=== PATIENT | male | born 1930 | race Asian ===

== ENCOUNTER 2019-04-08 17:11 | Emergency (ER) | payer MEDICARE ==
[~2019-04-08] VITALS: Ht 165.1 cm; Wt 74.8 kg
--- NOTE | 2019-04-08 17:15 | NUR ---
ED Nurse Note: PT BROUGHT IN TO ER TODAY FROM HOME BY RA29. AOX4. DAUGHTER AT BEDSIDE. PER PT'S DAUGHTER, PT HAS ABDOMINAL PAIN, NAUSEA, AND ONE EPISODE OF VOMITING AT HOME AROUND 1300. AT BEDSIDE, PT STILL C/O ABDOMINAL PAIN AND HAD ONE EPISODE OF VOMITING. PT CLEANED AND GOWN CHANGED. PT DENIES NAUSEA AFTER VOMITING EPISODE. BP ELEVATED - 167/76 - DR DRAPER AWARE.
[2019-04-08 17:42] VITALS: BP 167/76
--- NOTE | 2019-04-08 17:51 | Emergency Room Report ---
History of Present Illness General Chief Complaint: Nausea Source: Patient, EMS Present Illness HPI Patient is an 88-year-old male who presents after increased epigastric pain and vomiting. He had prior history of ulcers as well as dementia. Patient was brought in by 911. He had previously been on acid blockers. He reportedly had some dark emesis which appeared to look like coffee. He had previous history of bleeding ulcers in the past. He had drinking some soda prior to episode. He denies any diarrhea. He had a fall yesterday.Patient was noted to have some epigastric discomfort. History is limited by patient's mental status. Allergies: Coded Allergies: No Known Allergies (Unverified , 04/08/19) Patient History Past Medical History: see triage record Reviewed Nursing Documentation: PMH: Agreed; PSxH: Agreed Nursing Documentation-PM Past Medical History: No History, Except For Hx Hypertension: Yes History Of Psychiatric Problem: Yes - dementia Review of Systems All Other Systems: negative except mentioned in HPI Physical Exam Vital Signs Date Time Temp Pulse Resp B/P (MAP) Pulse Ox O2 Delivery O2 Flow Rate FiO2 04/08/19 17:07 99.0 69 18 164/78 (106) 97 Room Air Sp02 EP Interpretation: reviewed, normal General Appearance: alert, Chronically Ill Head: atraumatic ENT: normal ENT inspection, hearing grossly normal, normal voice Neck: normal inspection, full range of motion, supple, no bony tend Respiratory: normal inspection, lungs clear, normal breath sounds, no respiratory distress, no retraction, no wheezing Cardiovascular #1: regular rate, rhythm, no edema Gastrointestinal: soft, tenderness - epigastric, nondistended Genitourinary: no CVA tenderness Musculoskeletal: normal inspection, back normal, normal range of motion Neurologic: normal inspection, alert, responsive, 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 Differential diagnoses included ischemic bowel, appendicitis, perforated viscus, abdominal aortic aneurysm, inferior myocardial infarction, viral gastroenteritis among others. Because of complexity of patient's case laboratory tests and imaging studies were ordered. Patient was noted to have a recent fall as well as some epigastric pain.Patient was noted to have some dark emesis which is unclear if this is related to a prior history of ulcer. CT imaging was ordered and patient was given IV pain medications. Laboratory testing showed some significant elevation of the patient's lipase. A CT the abdomen pelvis was ordered to the patient's epigastric pain to rule out other pathology.CT of head was also ordered due to the patient's recent fall. Patient was discussed with [facility] case #[id number] he was transferred back to [facility] due to capitated facility. Labs Test 04/08/19 17:23 White Blood Count 8.4 K/UL (4.8-10.8) Red Blood Count 4.10 M/UL (4.70-6.10) Hemoglobin 12.2 G/DL (14.2-18.0) Hematocrit 37.2 % (42.0-52.0) Mean Corpuscular Volume 91 FL (80-99) Mean Corpuscular Hemoglobin 29.8 PG (27.0-31.0) Mean Corpuscular Hemoglobin Concent 32.8 G/DL (32.0-36.0) Red Cell Distribution Width 11.9 % (11.6-14.8) Platelet Count 144 K/UL (150-450) Mean Platelet Volume 6.3 FL (6.5-10.1) Neutrophils (%) (Auto) 66.3 % (45.0-75.0) Lymphocytes (%) (Auto) 16.9 % (20.0-45.0) Monocytes (%) (Auto) 8.9 % (1.0-10.0) Eosinophils (%) (Auto) 7.1 % (0.0-3.0) Basophils (%) (Auto) 0.7 % (0.0-2.0) Prothrombin Time 10.3 SEC (9.30-11.50) Prothromb Time International Ratio 1.0 (0.9-1.1) Activated Partial Thromboplast Time 27 SEC (23-33) Sodium Level 138 MMOL/L (136-145) Potassium Level 4.0 MMOL/L (3.5-5.1) Chloride Level 101 MMOL/L (98-107) Carbon Dioxide Level 26 MMOL/L (21-32) Anion Gap 12 mmol/L (5-15) Blood Urea Nitrogen 15 mg/dL (7-18) Creatinine 1.7 MG/DL (0.55-1.30) Estimat Glomerular Filtration Rate mL/min (>60) Glucose Level 116 MG/DL (74-106) Calcium Level 9.0 MG/DL (8.5-10.1) Total Bilirubin 0.6 MG/DL (0.2-1.0) Aspartate Amino Transf (AST/SGOT) 21 U/L (15-37) Alanine Aminotransferase (ALT/SGPT) 11 U/L (12-78) Alkaline Phosphatase 77 U/L (46-116) Troponin I 0.000 ng/mL (0.000-0.056) Total Protein 8.4 G/DL (6.4-8.2) Albumin 3.8 G/DL (3.4-5.0) Globulin 4.6 g/dL Albumin/Globulin Ratio 0.8 (1.0-2.7) Lipase > 2000 U/L (73-393) Last Vital Signs Date Time Temp Pulse Resp B/P (MAP) Pulse Ox O2 Delivery O2 Flow Rate FiO2 04/08/19 17:42 98.7 87 23 167/76 99 Room Air Status: improved Disposition: XFER SHT-TRM HOSP Condition: Stable Referrals: [facility] (PCP) Fan White MD Apr 08, 2019 17:51
[2019-04-08] MEDS ORDERED: Morphine Sulfate 2mg/ml Inj(IV/IM USE ONLY) IVP ONE ×2 (18:00→20:00)
[2019-04-08] MEDS ORDERED: Omnipaque-300 100ml vial INJ PRN (18:00)
[2019-04-08 18:03] LABS: BASOPHILS % (AUTO) 0.7 % (0.0-2.0); EOSINOPHILS % (AUTO) 7.1 % (0.0-3.0); HEMATOCRIT 37.2 % (42.0-52.0); HEMOGLOBIN 12.2 G/DL (14.2-18.0); LYMPHOCYTES % (AUTO) 16.9 % (20.0-45.0); MEAN CORPUSCULAR VOLUME 91 FL (80-99); MONOCYTES % (AUTO) 8.9 % (1.0-10.0); NEUTROPHILS % (AUTO) 66.3 % (45.0-75.0); PLATELET COUNT 144 K/UL (150-450); RED CELL DISTRIBUTION WIDTH 11.9 % (11.6-14.8); WHITE BLOOD COUNT 8.4 K/UL (4.8-10.8)
[2019-04-08 18:05] LABS: ANION GAP 12 mmol/L (5-15); BLOOD UREA NITROGEN 15 mg/dL (7-18); CARBON DIOXIDE 26 MMOL/L (21-32); CHLORIDE 101 MMOL/L (98-107); CREATININE 1.7 MG/DL (0.55-1.30); SODIUM 138 MMOL/L (136-145)
[2019-04-08 18:10] LABS: ALANINE AMINOTRANSFERASE 11 U/L (12-78); ALBUMIN 3.8 G/DL (3.4-5.0); ALBUMIN/GLOBULIN RATIO 0.8 (1.0-2.7); ALKALINE PHOSPHATASE 77 U/L (46-116); ASPARTATE AMINO TRANSFERASE 21 U/L (15-37); BILIRUBIN,TOTAL 0.6 MG/DL (0.2-1.0)
--- NOTE | 2019-04-08 19:03 | NUR ---
ED Nurse Note: PT REMINDED THAT URINE SPECIMEN IS NEEDED. URINAL LEFT AT BEDSIDE.
--- NOTE | 2019-04-08 19:06 | Diagnostic Imaging Report ---
Indication: Headache Technique: Contiguous 5 mm thick transaxial imaging of the head obtained in a Siemens Sensation [address] scanner. Soft tissue and bone windows generated. Automatic Exposure Control was utilized. Total Dose length Product (DLP): 1305.[address] Dose Index Volume (CTDIvol): 70.38 mGy Comparison: none Findings: There is moderate prominence of the ventricles, basal cisterns, and cerebral sulci consistent with atrophy. Moderate, nonspecific, white matter hypoattenuation is noted throughout the brain consistent with chronic small vessel disease. Intracranial arterial calcifications are present. There is no midline shift, edema, acute hemorrhage, mass effect, or abnormal extra-axial fluid collections. Bones are unremarkable. Bilateral cataract surgery noted. Impression: No acute intracranial bleed, mass effect or edema. Moderate atrophy of the brain. Evidence of chronic small vessel disease involving white matter tracts. [facility] has communicated the preliminary results to the Emergency Department. Their findings are largely concordant with this report. The CT scanner at [facility] is accredited by the [employer] and the scans are performed using dose optimization techniques as appropriate to a performed exam including Automatic Exposure control.
[2019-04-08 19:08] VITALS: BP 171/74
--- NOTE | 2019-04-08 19:18 | NUR ---
HAND-OFF: REPORT GIVEN TO SEFERINO BEY.
--- NOTE | 2019-04-08 19:30 | NUR ---
ED Nurse Note: RECIEVED PT ON GURNEY AWAKE, ALERT AND ORIENTED X 4, PT ON CARDIAC MONITORING, HAS PATENT SALINE LOCK IN RIGHT AC, FAMILY MEMBERS AT BEDSIDE, PT HERE WITH C/O ABD PAIN AND WAITING FOR DISPOSITION INFORMATION FOR TRANSFER TO [facility], PT V/S STABLE, NO SOB OR LABORED BREATHING, DENIES CP, NAD NOTED AT THIS TIME, WILL RESUME CARE ORDERED AND CONTINUE TO CLOSELY MONITOR.
--- NOTE | 2019-04-08 19:34 | Diagnostic Imaging Report ---
Indication: Abdominal pain Technique: Continuous helical transaxial imaging of the abdomen and pelvis was obtained from the lung bases to the pubic symphysis during intravenous contrast administration. Coronal 2-D reformats were also obtained. Study obtained in a Siemens sensation [address] Automatic Exposure Control was utilized. Total Dose length Product (DLP): 679.[address] Dose Index Volume (CTDIvol): 12.77 mGy Comparison: None Findings: Reticular densities at the lung bases demonstrated. This has the appearance of the fibrosis with some traction bronchiectasis present. Aorta is moderately calcified. There is a prominence of the heart. The liver is hypodense consistent with fatty infiltration. The pancreas is ill-defined. Suspect pancreatitis. Correlate with lipase. There is a suggestion of a cystic focus in the uncinate process measuring 1.6 x 1.0 cm. There are multiple bilateral renal cysts. The kidneys appear atrophic. There is no hydronephrosis. The gallbladder is unremarkable. There is a fusiform 4 cm aneurysm involving the lower abdominal aorta just above the bifurcation. The common iliac arteries appear relatively normal in caliber but are moderately calcified. There are diverticula throughout the colon. No definite diverticulitis appreciated. The appendix is normal. There is no ascites. There is thickening of the wall the urinary bladder. Partial fusion of the sacroiliac joints are demonstrated probably on a degenerative basis. There is narrowing of intervertebral discs and accompanying endplate osteophyte formation. Hypertrophied facet joints also demonstrated.. There is suggestion of a multilevel spinal stenosis which may be further evaluated with MRI. Prostate calcification noted. Bones are osteopenic. IMPRESSION: Suspected mild acute pancreatitis. Correlate with serum lipase. 4 cm fusiform aneurysm of the lower abdominal aorta. Chronic cystitis suspected. Correlate clinically 1.6 x 1 cm cystic focus in the uncinate process of the pancreas requiring further evaluation. Consider endoscopic ultrasound. Basilar lung fibrosis. Multiple bilateral renal cysts. Diverticulosis of the colon. Degenerative changes of the spine. Evaluation with MR suggested. [facility] has communicated the preliminary results to the Emergency Department. Their findings are largely concordant with this report. The CT scanner at [facility] is accredited by the [employer] and the scans are performed using dose optimization techniques as appropriate to a performed exam including Automatic Exposure control.
[2019-04-08 20:31] LABS: APPEARANCE,URINE CLEAR; BILIRUBIN, URINE NEGATIVE (NEGATIVE); COLOR,URINE PALE YELLOW; GLUCOSE, URINE (UA) NEGATIVE (NEGATIVE); KETONES,URINE NEGATIVE (NEGATIVE); LEUKOCYTE ESTERASE ,URINE NEGATIVE (NEGATIVE); NITRITE,URINE NEGATIVE (NEGATIVE); PH,URINE 7 (4.5-8.0); PROTEIN,URINE 2+ (NEGATIVE); UROBILINOGEN,URINE NORMAL MG/DL (0.0-1.0)
[2019-04-08 21:00] VITALS: BP 160/69
--- NOTE | 2019-04-08 21:00 | NUR ---
ED Nurse Note: PT CONTINUES TO REST QUIETLY IN BED, MEDICATED WITH MORPHINE FOR RETURN OF PAIN IN ABDOMEN AT 8/10, MEDS GIVEN AND EFFECTIVE, NO NAUSEA OR EMESIS, FAMILY MEMBERS REMAIN AT BEDSIDE, V/S STABLE, NAD OR CHANGES NOTED, CONTINUING TO WAIT FOR DISPOSITION INFORMATION FOR PT TRANSFER.
[2019-04-08 22:30] VITALS: BP 151/65
--- NOTE | 2019-04-08 22:30 | NUR ---
ED Nurse Note: RECIEVED NO INFO FOR ETA OF TRANSFER, [id number] IS HERE FOR PT TRANSPORT, PT FAMILY AT BEDSIDE, ATTEMPTED TO CALL REPORT TO [facility] AT [phone], WAS INFORMED NURSE WILL CALL BACK SHE IS PASSING MEDS, DID INFORM [facility] THAT AMB[facility] IS HERE NOW, REPORT AND ALL TRANSFER PAPERS GIVEN TO [employer], PT FAMILY HAS ALL BELONGINGS, NAD NOTED DURING PT TRANSPORT, WILL GIVE REPORT WHEN PT CALLS BACK.
--- NOTE | 2019-04-09 18:11 | Cardiology Report ---
APPROVED REPORT EKG Measurement Heart [id number] Normal sinus rhythm Normal ECG
== END 2019-04-08 22:30 | disposition short-term general hospital (02) ==
LOC: EDBD 17:11 → EMR 17:27
DX: I71.4 Abdominal aortic aneurysm, without rupture (principal); K85.90 Acute pancreatitis without necrosis or infection, unspecified; F03.90 Unspecified dementia, unspecified severity, without behavioral disturbance, psychotic disturbance, mood disturbance, and anxiety; I10 Essential (primary) hypertension
CPT/HCPCS: 36415; 70450; 74177; 80053; 81003; 83690; 84484; 85025; 85610; 85730; 86850; 86900; 86901; 93005; 96374; 96375; 96376; 99284; J2270; J2405; J7040; Q9967; S0028